=== PATIENT | male | born 1995 ===

== ENCOUNTER → 2024-03-16 14:48 | Outpatient (BNVA) | payer OTHER, SELFPAY | PROVIDERS: PCP Pediatrics; Visit Provider Physician Assistant Medical | DX: S66.211A Strain of extensor muscle, fascia and tendon of right thumb at wrist and hand level, initial encounter (principal); S60.221A Contusion of right hand, initial encounter; W01.0XXA Fall on same level from slipping, tripping and stumbling without subsequent striking against object, initial encounter | CPT/HCPCS: 73130; 99203 ==

== ENCOUNTER 2024-04-14 12:37 | Emergency (ER) | payer OTHER, SELFPAY ==
--- NOTE | ~2024-04-14 | CT_ITS ---
EXAMINATION: CT HEAD WITHOUT CONTRAST CLINICAL INFORMATION: head injury right anglican COMPARISON: CT dated September 20, 2008 TECHNIQUE: Contiguous axial imaging was performed from the skull base to vertex without intravenous administration of contrast. This CT examination was performed using dose optimization techniques as appropriate, variously including the following: *Automated exposure control *Adjustment of mA and/or kV according to patient size (this includes techniques or standardized protocols for targeted exams where dose is matched to indication/reason for exam; i.e. extremities or head) *Use of iterative reconstruction technique DLP: 642 mGy-cm FINDINGS: Right forehead soft tissue contusion. No gross contusion/hemorrhage in the intraconal or extraconal compartments of the orbits. Bony calvarium is intact. No acute intracranial hemorrhage, mass effect, midline shift, hydrocephalus or herniation. Prabhakar-white matter differentiation is normal. Posterior cranial fossa contents demonstrated no acute intracranial hemorrhage or mass effect. No air-fluid levels in the included paranasal sinuses. Retention cyst, right sphenoid sinus. There is pneumatization of the paranasal sinuses extending into the anterior clinoid processes, dorsum sella, pterygoid recesses. Tympanic cavities and mastoid cells are aerated. Pneumatized petrous apices. CT/CT head/brain wo IV con IMPRESSION: Soft tissue contusion, right forehead. No acute fracture, bony calvarium. No acute intracranial hemorrhage. Electronically signed by: Braxton Mansfield MD 04/14/2024 03:11 PM TONY
--- NOTE | 2024-04-14 12:42 | ED_ITS ---
HPI - Head Injury General Chief complaint: Head Injury Stated complaint: head [id number] Time Seen by Provider: 04/14/24 13:46 Source: patient Mode of arrival: ambulatory Limitations: no limitations History of Present Illness ED Provider: Matthias Vilchis PA-C HPI Narrative: 28 yold male with pmh presents to the ED for head injury at work. Patient states landing gear hit him on the head. patient denies loss of concscisouness. Patient admits to not having helmet on. patient was on level ground. Patient states nuaseous Related Data Allergies Allergy/AdvReac Type Severity Reaction Status Date / Time No Known Allergies Allergy Verified 04/14/24 12:48 Review of Systems 2 Review of Systems: Headache after head trauma with landing gear Yes all other systems are reviewed and are negative PMFSH Social History Social History Advance Directives: No Advance Directives Information Provided: Yes Do you have a plan to hurt others: No Plan Physical Exam 2 Vital Signs: Vital Signs: Last Vital Signs Temp 97.9 F 04/14/24 16:24 Pulse 56 04/14/24 16:24 Resp 18 04/14/24 16:24 BP 106/69 04/14/24 16:24 Pulse Ox 100 04/14/24 16:24 O2 Del Method Room Air 04/14/24 16:24 BMI result Body Mass Index 23.1 Const: General: cooperative, healthy appearing, comfortable, no acute distress, well developed, alert, awake and Physically active O rientation/consciousness: patient oriented x3 HEENT: Head: Yes normal to inspection, Yes No palpable skull fracture present and Yes normocephalic Head images: 1. Frontal hematoma Ears: hearing grossly normal bilaterally, external ears normal, TM's normal bilaterally, TM normal on the right, TM normal on the left, EAC's normal, mastoids normal and no periauricular adenopathy Throat: Yes posterior oropharynx normal, Yes tonsils normal and Yes uvula midline Eyes: General: appearance normal, both eyes and all related structures Neck: Neck: Yes normal visual inspection, Yes full ROM, Yes no lymphadenopathy, Yes no meningeal signs, Yes trachea midline, Yes supple, No anterior neck swelling and No tender Chest: Chest palpation & inspection: normal inspection of the chest and normal palpation of entire chest wall Resp: Effort & Inspection: normal respiratory effort and able to speak in complete sentences Auscultation: clear to auscultation bilaterally Cardio: Jugular venous distension: no JVD Heart sounds: S1 normal heart sound present and S2 normal heart sound present GI: Inspection: Yes normal to inspection Palpation (GI): Soft to palpation, not firm, nontender, no guarding and not rigid : General: Yes no CVA tenderness Back/Spine/Pelvis: Back: no CVA tenderness and No back tenderness Skin: General skin exam: no rashes or lesions noted, elasticity normal and turgor normal Neuro: General: patient oriented x3, gait normal, tone normal, moves all extremities, Normal light touch and pain sensation, no meningeal signs, no focal motor deficits, CN's II-XI intact bilaterally and normal sensation to monofilament Extrem: General: Yes normal to inspection, Yes full ROM and Yes capillary refill normal Psych: Appearance: grossly normal and well kempt Course Course Course Narrative: This is a Rapid Medical Examination (RME) performed by Coco Palencia PA-C in triage. Full HPI, ROS, assessment and treatment plan per primary provider in the Main ED. 28 yo male here from [facility] s/p head injury sustained at work [employer]. while picking up a trailer at work, the landing gear handle swung back and struck him in the right side of his head. he was knocked to the ground. no LOC. No thinners. nausea without vomiting. + AOX3. does not appear lethargic. speaking in full sentences, answering questions appropriately. perrla. exam nonfocal. hematoma noted to right catholic w/o palpable skull fx. no overlying lacerations. Plan: labs, CT scan Medical Decision Making Medical Decision Making [facility] Narrative: 28-year-old male presents to ED for head trauma after being hit with landing gear while at work. Patient did not have a helmet on. Patient denies any loss of consciousness. Patient states no other complaints. Whole-body evaluate negative for signs of obvious life-threatening trauma. Only positive finding is right frontal hematoma. 4:06pm: Labs are normal. Head CT scan is normal. Cervical spine CT scan being ordered was discussed with the patient. Patient does not have any cervical spine tenderness, but due to mechanism of injury it was advised to have cervical spine CT scan or at least x-ray to rule out any fracture. Patient was explained worrisome signs of paralysis. Patient states he does not have any neck pain and has normal movement of all extremities without any tingling. Once again negative posterior cervical spine tenderness on palpation. Patient declined cervical spine CT scan or cervical spine x-ray known risk of paralysisand . Patient explained worrisome signs including signs of paralysis of upper lower extremities due to possible neck injury, , total paralysis, and informed to return to the ED immediately. Differential Diagnosis Differential Diagnoses: The differential diagnosis associated with the presentation includes (Head injury, brain bleed) Admission/Observation Consideration of admission/observation: Escalation of care including admission/observation considered Lab Data MDM Lab Attestation statement: I reviewed the patient's lab results. 04/14/24 13:08 04/14/24 13:08 Labs: Lab Results 04/14/24 Range/Units 13:08 WBC 6.1 (4.8-10.8) X10*3/uL RBC 4.93 (4.60-5.80) X10*6/uL Hgb 14.3 (14.0-18.0) g/dl Hct 40.3 L (42.0-52.0) % MCV 81.7 (80.0-98.0) fL MCH 29.0 (27.0-33.0) pg MCHC 35.5 (31.0-36.0) g/dl RDW 12.3 (11.0-16.0) % Plt Count 123 L (160-400) X10*3/uL MPV 10.2 (9.4-12.4) fL Immature Gran % (Auto) 0.5 H (0.0-0.4) % Neut % (Auto) 66.0 (45-73) % Lymph % (Auto) 23.8 (20-40) % Swain % (Auto) 6.5 (2-11) % Eos % (Auto) 2.4 (0-4) % Baso % (Auto) 0.8 (0-2) % Lymph # (Auto) 1.5 (1.2-4.9) X10*3/uL Swain # (Auto) 0.4 (0.1-1.2) X10*3/uL Eos # (Auto) 0.2 (0.0-0.4) X10*3/uL Baso # (Auto) 0.1 (0.0-0.2) X10*3/uL Abs Immat Gran (auto) 0.03 (0.00-0.03) X10*3/uL Absolute Neuts (auto) 4.1 (2.0-8.3) x10*3/uL Absolute Nucleated RBC 0.000 (0.0-0.012) X10*3/uL Nucleated RBC % (auto) 0.0 (0.0-0.2) /100WBC PT 11.9 (10.9-12.4) SEC INR 1.0 (0.9-1.1) Sodium 136 (135-145) mmol/L Potassium 4.0 (3.3-5.1) mmol/L Chloride 105 (96-108) mmol/L Carbon Dioxide 26 (22-29) mmol/L Anion Gap 9 L (12-20) BUN 14 (9-16) mg/dL Creatinine 0.85 (0.5-1.4) mg/dL Estim Creat Clear Calc 163.0 Estimated GFR > 60 Random Glucose 100 (60-115) mg/dL Calcium 9.4 (8.4-10.2) mg/dL Magnesium 2.1 (1.6-2.6) mg/dL Total Bilirubin 1.2 H (0.0-1.0) mg/dL AST 20 (5-37) U/L ALT 15 (0-40) U/L Alkaline Phosphatase 107 (39-117) U/L Total Protein 6.9 (6.5-8.0) g/dL Albumin 4.3 (3.5-5.0) g/dL Independent Interpretation I performed an independent interpretation of an: CT Scan Radiology Impression Discussion of test interpretation with radiology: I have reviewed the radiologist's reading. Independent Historian Clinical information obtained from an independent historian. History obtained from or confirmed by: Other (Patient) External Record Review External record reviewed: Other (Prior visits) Discharge Plan Discharge Clinical Impression: Closed head injury Patient Disposition: Home, Self-Care Instructions: Head Injury (ED) Additional Instructions: You will need follow-up with [facility]. Return to ED for any headache, nausea, neck pain, vomiting, neck pain, dizziness, tingling/weakness/paralysis of extremities, chest pain, shortness of breath, or any other concerning symptoms. You can take Motrin and Tylenol that you already have at home for pain relief. Referrals: [facility] [Outside] (Head injury) Stand Alone Forms: Work/School Release Discharge Date/Time: 04/14/24 16:29 Print Language: Chilean
[2024-04-14 12:44] VITALS: BP 96/54; PULSE 59; RESP 16; TEMP 36.8; O2SAT 98; BMI 23.1
[2024-04-14 13:16] LABS: MANUAL DIFF FLAG NO
[2024-04-14 13:20] LABS: Basophils Absolute Auto 0.1 X10*3/uL (0.0-0.2); Basophils Percent Auto 0.8 % (0-2); Eosinophils Absolute Auto 0.2 X10*3/uL (0.0-0.4); Eosinophils Percent Auto 2.4 % (0-4); Hematocrit 40.3 % (42.0-52.0); Hemoglobin 14.3 g/dl (14.0-18.0); Imm Gran Abs Auto 0.03 X10*3/uL (0.00-0.03); Imm Gran Pct Auto 0.5 % (0.0-0.4); Lymphocytes Absolute Auto 1.5 X10*3/uL (1.2-4.9); Lymphocytes Percent Auto 23.8 % (20-40); Mean Corpuscular HGB Conc 35.5 g/dl (31.0-36.0); Mean Corpuscular Volume 81.7 fL (80.0-98.0); Mean Platelet Volume 10.2 fL (9.4-12.4); Monocytes Absolute Auto 0.4 X10*3/uL (0.1-1.2); Monocytes Percent Auto 6.5 % (2-11); Neutrophils Absolute Auto 4.1 x10*3/uL (2.0-8.3); Platelet Count 123 X10*3/uL (160-400); Red Blood Count 4.93 X10*6/uL (4.60-5.80); Red Cell Distribution Width 12.3 % (11.0-16.0); White Blood Count 6.1 X10*3/uL (4.8-10.8)
[2024-04-14 13:28] LABS: Prothrombin Time 11.9 SEC (10.9-12.4)
[2024-04-14 13:43] LABS: Alanine Aminotransferase 15 U/L (0-40); Albumin Level 4.3 g/dL (3.5-5.0); Alkaline Phosphatase 107 U/L (39-117); Anion Gap 9 (12-20); Aspartate Amino Transferase 20 U/L (5-37); Bilirubin Total 1.2 mg/dL (0.0-1.0); Blood Urea Nitrogen 14 mg/dL (9-16); Calcium 9.4 mg/dL (8.4-10.2); Carbon Dioxide 26 mmol/L (22-29); Chloride 105 mmol/L (96-108); Estimated Glomerular Filt Rate > 60; Glucose Random 100 mg/dL (60-115); Magnesium 2.1 mg/dL (1.6-2.6); Sodium 136 mmol/L (135-145); Total Protein 6.9 g/dL (6.5-8.0)
[2024-04-14 16:24] VITALS: BP 106/69; PULSE 56; RESP 18; TEMP 36.6; O2SAT 100
== END 2024-04-14 16:29 | disposition home or self-care (01) ==
PROVIDERS: Physician Assistant Medical; Emergency Provider Emergency Medicine
DX: S09.90XA Unspecified injury of head, initial encounter (principal); S00.83XA Contusion of other part of head, initial encounter; W22.8XXA Striking against or struck by other objects, initial encounter; R42 Dizziness and giddiness; R51.9 Headache, unspecified; R11.0 Nausea; Y93.89 Activity, other specified; Y92.59 Other trade areas as the place of occurrence of the external cause; Y99.0 Civilian activity done for income or pay
CPT/HCPCS: 36415; 70450; 80053; 83735; 85025; 85610; 99282; 99284

== ENCOUNTER → 2024-04-14 12:45 | Outpatient (BNV) | payer OTHER, SELFPAY | PROVIDERS: Emergency Provider Emergency Medicine; Visit Provider Radiology Diagnostic Radiology | DX: S00.83XA Contusion of other part of head, initial encounter (principal) | CPT/HCPCS: 70450 ==